=== PATIENT | male | born 1995 | race African-American/Black ===

== ENCOUNTER 2017-06-17 14:32 | Emergency (ER) | payer BC ==
[~2017-06-17] VITALS: Ht 188 cm; Wt 71.0 kg
[2017-06-17 14:35] VITALS: TEMP 36.7; Ht 188 cm; Wt 71.0 kg
[2017-06-17 15:39] LABS: BASO % 0.3 %; BASO ABS # 0.02 K/uL (0-0.2); EOS % 0.6 %; EOS ABS # 0.04 K/uL (0-0.5); HEMATOCRIT 42.5 % (42-52); HEMOGLOBIN 15.1 g/dL (14.0-18.0); IG# 0.01 K/uL (0.00-0.02); LYMPH % 28.3 %; LYMPH ABS # 1.88 K/uL (1.2-3.4); MEAN CELL VOLUME 86.4 fL (80-100); MEAN CORPUSCULAR HEMOGLOBIN 30.7 pg (25-34); MEAN CORPUSCULAR HGB CONC 35.5 g/dl (32-36); MEAN PLATELET VOLUME 9.5 fL (7.4-10.4); MONO % 4.2 %; MONO ABS # 0.28 K/uL (0.11-0.59); NEUT % 66.4 %; NEUT ABS # 4.42 K/uL (1.4-6.5); PLATELET COUNT 233 K/uL (130-400); RED CELL DISTRIBUTION WIDTH CV 12.7 % (11.5-14.5); RED CELL DISTRIBUTION WIDTH SD 40.4 fL (36.4-46.3); WHITE BLOOD COUNT 6.65 K/uL (4.8-10.8)
[2017-06-17 16:01] LABS: ALBUMIN 4.4 gm/dl (3.4-5.0); CALCIUM 9.5 mg/dl (8.5-10.1); CREATININE 1.09 mg/dl (0.60-1.40); POTASSIUM 3.8 mmol/L (3.5-5.1)
[2017-06-17 16:12] LABS: TOTAL PROTEIN 8.2 gm/dl (6.4-8.2)
--- NOTE | 2017-06-17 16:18 | EMERGENCY ROOM VISIT NOTE ---
History Report prepared by Elliott: Delgado Ritter Under the Supervision of: Dr. Kwame Martinez M.D. First contact with patient: 15:08 Chief Complaint: MENTAL HEALTH EVALUATION Stated Complaint: 302 MENTAL HEALTH History of Present Illness The patient is a 22 year old male who presents to the Emergency Room with complaints of intermittent suicidal ideation beginning six months ago. He states that he has felt depressed for the past seven months. Per human services case manager, the patient sent a text to his girlfriend today telling her that they needed to break up because he was going to kill himself in a few days. She states that the patient's girlfriend called his mom because they were both unable to reach the patient. She states that the patient's mother called police to find the patient. The human services case manager states that the patient is currently facing drug charges, and is no longer allowed to live on campus. The patient states that he is doing well in school, and his relationships are fine. He states that he has been under a lot of stress today. He does not believe he would actually hurt himself. The patient has no history of suicide attempts, or psychiatric care. He states that he normally goes for walks when he feels stressed. He states that he went for a walk today, and his friends were unable to reach him because his phone . The patient states that his suicidal thoughts subsided today after he went for a walk. He has a history of chronic abdominal pain, and is scheduled for endoscopy in next few weeks. He is unable to identify specific triggers for his depression other than his stress about school and his living situation. Source of History: patient, other (human services case manager) Onset: Six months ago Quality: other (suicidal ideation) Timing: intermittent Review of Systems See HPI for pertinent positives & negatives. A total of 10 systems reviewed and were otherwise negative. Past Medical & Surgical Medical Problems: (1) Abdominal pain Old medical records were reviewed. Nurse's notes were reviewed and I agree with. Family History No pertinent family history stated. Social History Smoking Status: Never Smoker Housing Status: lives with roommate Occupation Status: [employer] student Current/Historical Medications No Active Prescriptions or Reported Meds Allergies Coded Allergies: No Known Allergies (Unverified , 06/17/17) Physical Exam Vital Signs Date Time Temp Pulse Resp B/P (MAP) Pulse Ox O2 Delivery O2 Flow Rate FiO2 06/17/17 14:35 36.7 76 16 138/80 97 Room Air Physical Exam General: Non-ill appearing, slender young male in no acute distress. HEENT: Normal cephalic atraumatic. Pupils are equal round and reactive to light. Extraocular movements are intact. Oropharynx is pink with moist mucous membranes. No swelling of the mouth lips or tongue. Neck: Supple with a midline trachea. No meningeal signs or stiffness, no JVD or bruits. No Stridor. Chest: Clear to auscultation bilaterally. No wheezes or rhonchi. No increased work of breathing. Heart: regular rate and rhythm. Abdomen: Soft nontender, nondistended without rebound guarding or rigidity. Extremities: No cyanosis clubbing or edema. No calf tenderness or assymetry Spine/Back. Non tender to palpation. No CVA tenderness Skin: Good turgor without rashes. Neurologic exam: Cranial nerves two through 12 are intact. Motor and sensation are intact and symmetrical throughout. Psych: Normal thought process and affect. Denies suicidal or homicidal ideations. Medical Decision & Procedures Laboratory Results 06/17/17 15:19 Red Blood Count 4.92, Mean Corpuscular Volume 86.4, Mean Corpuscular Hemoglobin 30.7, Mean Corpuscular Hemoglobin Concent 35.5, Mean Platelet Volume 9.5, Neutrophils (%) (Auto) 66.4, Lymphocytes (%) (Auto) 28.3, Monocytes (%) (Auto) 4.2, Eosinophils (%) (Auto) 0.6, Basophils (%) (Auto) 0.3, Neutrophils # (Auto) 4.42, Lymphocytes # (Auto) 1.88, Monocytes # (Auto) 0.28, Eosinophils # (Auto) 0.04, Basophils # (Auto) 0.02 06/17/17 15:19 Test 06/17/17 15:19 06/17/17 17:40 White Blood Count 6.65 K/uL (4.8-10.8) Red Blood Count 4.92 M/uL (4.7-6.1) Hemoglobin 15.1 g/dL (14.0-18.0) Hematocrit 42.5 % (42-52) Mean Corpuscular Volume 86.4 fL (80-100) Mean Corpuscular Hemoglobin 30.7 pg (25-34) Mean Corpuscular Hemoglobin Concent 35.5 g/dl (32-36) Platelet Count 233 K/uL (130-400) Mean Platelet Volume 9.5 fL (7.4-10.4) Neutrophils (%) (Auto) 66.4 % Lymphocytes (%) (Auto) 28.3 % Monocytes (%) (Auto) 4.2 % Eosinophils (%) (Auto) 0.6 % Basophils (%) (Auto) 0.3 % Neutrophils # (Auto) 4.42 K/uL (1.4-6.5) Lymphocytes # (Auto) 1.88 K/uL (1.2-3.4) Monocytes # (Auto) 0.28 K/uL (0.11-0.59) Eosinophils # (Auto) 0.04 K/uL (0-0.5) Basophils # (Auto) 0.02 K/uL (0-0.2) RDW Standard Deviation 40.4 fL (36.4-46.3) RDW Coefficient of Variation 12.7 % (11.5-14.5) Immature Granulocyte % (Auto) 0.2 % Immature Granulocyte # (Auto) 0.01 K/uL (0.00-0.02) Anion Gap 4.0 mmol/L (3-11) Est Creatinine Clear Calc Drug Dose 108.6 ml/min Estimated GFR () 112.6 Estimated GFR (Non- 97.2 BUN/Creatinine Ratio 11.0 (10-20) Calcium Level 9.5 mg/dl (8.5-10.1) Total Bilirubin 0.7 mg/dl (0.2-1) Direct Bilirubin 0.2 mg/dl (0-0.2) Aspartate Amino Transf (AST/SGOT) 27 U/L (15-37) Alanine Aminotransferase (ALT/SGPT) 25 U/L (12-78) Alkaline Phosphatase 71 U/L (45-117) Total Protein 8.2 gm/dl (6.4-8.2) Albumin 4.4 gm/dl (3.4-5.0) Thyroid Stimulating Hormone (TSH) 2.560 uIu/ml (0.300-4.500) Ethyl Alcohol mg/dL < 3.0 mg/dl (0-3) Laboratory studies as stated above per my review. ED Course 1517: Past medical records reviewed. The patient was evaluated in room A6, and a complete history and physical examination were performed. 1615: The patient is medically clear. 1635: I checked in on the patient. He is being evaluated by the psychiatric human services case manager. 1728: I spoke with the psychiatric human services case manager. The patient would like to go home. After speaking with the patients girlfriend and father, the human services case manager feels that the patient would be safe to go home. He will be called tomorrow by crisis for follow-up. 1750: Upon reevaluation, the patient is resting comfortably. I discussed the results and treatment plan with him. He verbalized agreement of the treatment plan. The patient was discharged home. Medical Decision Differentials include, but are not limited to; depression, anxiety, toxicologic , and electrolyte or metabolic abnormality. This patient comes in as described above. He was placed in room A6. He is here for treatment and evaluation of depression. He was brought in after his family could not find him. He had made some suicidal threats but he said that he was just rest and denies that he actually wants to hurt himself. he denies any suicidal homicidal ideations at present. His father did arrive from home and his girlfriend is at the bedside as well. Multiple blood testing was obtained for medical clearance. He has no evidence to suggest electrolyte or metabolic or infectious or toxicologic process. He was medically cleared. He was further evaluated by Eugenia, our psychiatric human services case manager, in the ER. The patient's father and girlfriend both feels safe to go home. The patient denies that he wants to hurt himself, he was just feeling depressed earlier and said something that he did mean he says. The father is going to stay tonight and the patient is can stay with his girlfriend. We are going to try toget him an emergency appointment with [facility] and will call Tomorrow. The patient and his family were happy with the plan and he was discharged to home. Medication Reconcilliation Current Medication List: was personally reviewed by me Blood Pressure Screening Patient's blood pressure: Elevated blood pressure Blood pressure disposition: Elevated BP felt to be situational Impression Primary Impression: Depression Scribe Attestation The scribe's documentation has been prepared under my direction and personally reviewed by me in its entirety. I confirm that the note above accurately reflects all work, treatment, procedures, and medical decision making performed by me. Departure Information Dispostion Home / Self-Care Prescriptions No Active Prescriptions or Reported Meds Referrals iMke Baugh M.D. (PCP) Forms HOME CARE DOCUMENTATION FORM, IMPORTANT VISIT INFORMATION Patient Instructions My [facility] Additional Instructions Return if: Worsening of symptoms, thoughts of hurting yourself or others, any new problems or concerns Follow-up with the [facility] program and your counselor back home
[2017-06-17 18:00] VITALS: BP 124/78; PULSE 82; O2SAT 98
== END 2017-06-17 18:03 | disposition home or self-care (01) ==
LOC: C.EDB 14:33 → C.EDA 18:03
DX: F32.9 Major depressive disorder, single episode, unspecified (principal)